=== PATIENT | male | born 1980 | race Caucasian/White ===

== ENCOUNTER 2022-07-07 13:30 | Emergency (ER) | payer MEDICAID ==
[~2022-07-07] VITALS: Ht 172.7 cm; Wt 72.7 kg
[~2022-07-07 13:30] MED LIST: HYDR1TAB PO; ONDA4TAB59 PO
[2022-07-07 13:49] VITALS: BP 126/84
--- NOTE | 2022-07-07 14:01 | NUR ---
Pt in ER9, Pt c/o pain to top left of his mouth. Pt broke his tooth aprox 8 months ago. When he woke up this AM he noticed swelling and c/o 7/10 that is constant throbbing pain that is radiating to his ear and up his head. Pt educated to POC. Pt in agreement w/ POC. Pending eval and treatment.
[2022-07-07] MEDS ORDERED: AMOX-580 PO (14:06)
== END 2022-07-07 14:10 | disposition home or self-care (01) ==
LOC: ER 13:31
DX: K04.7 Periapical abscess without sinus (principal); Z87.442 Personal history of urinary calculi; Z88.5 Allergy status to narcotic agent; Z79.899 Other long term (current) drug therapy
CPT/HCPCS: 99283